=== PATIENT | male | born 1935 | race Caucasian/White ===

== ENCOUNTER 2018-03-09 07:33 | Day surgery (SDC) | payer MEDICARE, OTHER ==
[~2018-03-09] VITALS: Ht 177.8 cm; Wt 64.6 kg
[~2018-03-09 07:33] MED LIST: LEVSOD88 PO; MULVITMINF PO; OMEP20ER PO; OXYACE5T PO; TAMS.4ER PO
== END 2018-03-09 09:49 | disposition home or self-care (01) ==
LOC: ORSCSDS 07:33
PROVIDERS: Ophthalmology
PROC: 08RJ3JZ Replacement of Right Lens with Synthetic Substitute, Percutaneous Approach (ICD-10-PCS; principal; 2018-03-09 09:00)
DX: H25.11 Age-related nuclear cataract, right eye (principal); E03.9 Hypothyroidism, unspecified; K21.9 Gastro-esophageal reflux disease without esophagitis; Z79.899 Other long term (current) drug therapy
CPT/HCPCS: J2250; J3301; J7040; V2632

== ENCOUNTER 2019-06-14 08:39 | Day surgery (SDC) | payer MEDICARE, OTHER ==
[~2019-06-14] VITALS: Ht 175.3 cm; Wt 62.5 kg
== END 2019-06-14 11:06 | disposition home or self-care (01) ==
LOC: ORSCSDS 08:39
PROVIDERS: Ophthalmology
PROC: 08RK3JZ Replacement of Left Lens with Synthetic Substitute, Percutaneous Approach (ICD-10-PCS; principal; 2019-06-14 10:00)
DX: H25.12 Age-related nuclear cataract, left eye (principal); E03.9 Hypothyroidism, unspecified; K21.9 Gastro-esophageal reflux disease without esophagitis; Z87.891 Personal history of nicotine dependence; Z79.899 Other long term (current) drug therapy
CPT/HCPCS: J2001; J2250; J3010; J3301; J7120; V2632